=== PATIENT | female | born 1990 | race Caucasian/White ===

== ENCOUNTER 2016-08-10 11:11 | Emergency (ER) | payer OTHER ==
[2016-08-10 12:09] VITALS: BP 135/73
--- NOTE | 2016-08-10 12:31 | UC ---
Throat Pain/Nasal Tima HPI - HPI Summary HPI Summary: Forehead pain and pressure with mild hoarseness, L ear pain starting today. Sent here from work because of illness. - History of Current Complaint Chief Complaint: UCRespiratory Stated Complaint: LEFT EAR PAIN Time Seen by Provider: 08/10/16 11:59 Hx Obtained From: Patient Hx Last Menstrual Period: 07/31 ?: No Onset/Duration: Gradual Onset, Lasting Hours Severity: Mild Cough: None Associated Signs & Symptoms: Positive: Sinus Discomfort. Negative: Nasal Discharge, Fever - Allergies/Home Medications Allergies/Adverse Reactions: Allergies Allergy/AdvReac Type Severity Reaction Status Date / Time Chlorpheniramine Allergy Hives Verified 08/10/16 12:09 [From Rynatan] Phenylephrine [From Rynatan] Allergy Hives Verified 08/10/16 12:09 Home Medications: Home Medications Cholecalciferol [Vitamin D] 1,000 unit PO DAILY 08/10/16 [History Confirmed ] Otc Thyroid Support 1 tab PO BID 08/10/16 [History Confirmed 08/10/16] Selenium-Yeast [Selenium] 1 tab PO DAILY 08/10/16 [History Confirmed 08/10/16] PMH/Surg Hx/FS Hx/Imm Hx Endocrine History Of: Reports: Thyroid Disease - hypothyroid Denies: Diabetes Cardiovascular History Of: Denies: Cardiac Disorders, Hypertension Respiratory History Of: Denies: COPD, Asthma GI/ History Of: Denies: Ulcer - Surgical History Surgical History: Yes Surgery Procedure, Year, and Place: ear tubes as a child. T&A age 8 - Family History Known Family History: Positive: Cardiac Disease, Hypertension, Diabetes - Social History Occupation: Employed Full-time Lives: With Family Alcohol Use: Rare Substance Use Type: None Smoking Status (MU): Never Smoked Tobacco Have You Smoked in the Last Year: No - Immunization History Most Recent Influenza Vaccination: April 2016 Review of Systems Constitutional: Negative Skin: Negative Eyes: Negative ENT: Ear Ache, Other - hoarse Respiratory: Negative Cardiovascular: Negative Gastrointestinal: Negative Genitourinary: Negative Motor: Negative Neurovascular: Negative Musculoskeletal: Negative Neurological: Headache Psychological: Negative All Other Systems Reviewed And Are Negative: Yes Physical Exam Triage Information Reviewed: Yes Appearance: Well-Appearing, No Pain Distress, Well-Nourished Vital Signs: Initial Vital Signs Temp 98.6 F 08/10/16 12:03 Pulse 71 08/10/16 12:03 Resp 18 08/10/16 12:03 BP 135/73 08/10/16 12:03 Pulse Ox 100 08/10/16 12:03 Vital Signs Reviewed: Yes Eye Exam: Normal Eyes: Positive: Conjunctiva Clear ENT: Positive: Pharynx normal, TMs normal, Muffled/hoarse voice - hoarse. Negative: Nasal congestion, TM bulging, TM dull, TM red Dental Exam: Normal Neck exam: Normal Neck: Positive: Supple, Nontender, No Lymphadenopathy Respiratory Exam: Normal Respiratory: Positive: Chest non-tender, Lungs clear, Normal breath sounds, No respiratory distress, No accessory muscle use Cardiovascular Exam: Normal Cardiovascular: Positive: RRR, No Murmur Musculoskeletal Exam: Normal Neurological Exam: Normal Psychological Exam: Normal Skin Exam: Normal Throat Pain/Nasal Course/Dx - Differential Dx/Diagnosis Provider Diagnoses: laryngitis Discharge - Discharge Plan Condition: Stable Disposition: HOME Patient Education Materials: Laryngitis (ED) Forms: *Work Release Referrals: Rosa Patrick MD [Primary Care Provider] - If Needed Additional Instructions: Call or return if you develop increasing fever, shortness of breath, chest pain , bloody sputum, or otherwise worsen. If you have not improved at all after several days, contact your primary care physician or return here.
== END 2016-08-10 12:34 | disposition home or self-care (01) ==
LOC: UCCORT 11:11
DX: J04.0 Acute laryngitis (principal); E03.9 Hypothyroidism, unspecified; Z88.8 Allergy status to other drugs, medicaments and biological substances
CPT/HCPCS: 99211; G0463

== ENCOUNTER 2017-05-20 19:59 | Emergency (ER) | payer OTHER, MEDICAID ==
[2017-05-20 20:17] VITALS: BP 120/71
--- NOTE | 2017-05-20 20:55 | ED ---
Back Pain - HPI Summary HPI Summary: 26 yr old female with the complaint of low back pain. The patient has had low back pain for over two years and is seeing a chiropractor. She has had exacerbation for two weeks this time, same location, low left back that radiates into her left buttock area. No fever or chills. No numbness, no tingling no bowel or bladder incontinence. No other complaints. - History of Current Complaint Chief Complaint: UCBackPain Stated Complaint: BACK PAIN Time Seen by Provider: 05/20/17 20:43 Hx Last Menstrual Period: 05/17/17 - Allergies/Home Medications Allergies/Adverse Reactions: Allergies Allergy/AdvReac Type Severity Reaction Status Date / Time Chlorpheniramine Allergy Hives Verified 05/20/17 20:17 [From Rynatan] Phenylephrine [From Rynatan] Allergy Hives Verified 05/20/17 20:17 Home Medications: Home Medications Ibuprofen TAB* [Motrin TAB* 800 MG] 800 mg PO ONCE 05/20/17 [History Confirmed 05/20/17] Oral Contraceptive 1 tab PO DAILY 05/20/17 [History Confirmed 05/20/17] PMH/Surg Hx/FS Hx/Imm Hx Endocrine/Hematology History: Reports: Hx Thyroid Disease - hypothyroid Denies: Hx Diabetes Cardiovascular History: Denies: Hx Hypertension Respiratory History: Denies: Hx Asthma, Hx Chronic Obstructive Pulmonary Disease (COPD) GI History: Denies: Hx Ulcer - Surgical History Surgery Procedure, Year, and Place: ear tubes as a child. T&A age 8 Infectious Disease History: No Infectious Disease History: Denies: Hx Clostridium Difficile, Hx Hepatitis, Hx Human Immunodeficiency Virus (HIV), Hx of Known/Suspected MRSA, Hx Shingles, Hx Tuberculosis, Hx Known/ Suspected VRE, Hx Known/Suspected VRSA, History Other Infectious Disease, Traveled Outside the [place] in Last 30 Days - Family History Known Family History: Positive: Cardiac Disease, Hypertension, Diabetes - Social History Alcohol Use: Rare Substance Use Type: Reports: None Smoking Status (MU): Never Smoked Tobacco Have You Smoked in the Last Year: No Review of Systems Positive: Other - back pain All Other Systems Reviewed And Are Negative: Yes Physical Exam Triage Information Reviewed: Yes Vital Signs On Initial Exam: Initial Vitals Temp Pulse Resp BP Pulse Ox 98 F 100 18 120/71 100 05/20/17 20:11 05/20/17 20:11 05/20/17 20:11 05/20/17 20:11 05/20/17 20:11 Vital Signs Reviewed: Yes Appearance: Positive: Well-Appearing, No Pain Distress Skin: Positive: Warm Head/Face: Positive: Normal Head/Face Inspection Eyes: Positive: EOMI ENT: Positive: Normal ENT inspection Neck: Negative: Tenderness @ Respiratory/Lung Sounds: Positive: Clear to Auscultation, Breath Sounds Present Abdomen Description: Positive: Nontender. Negative: CVA Tenderness (R), CVA Tenderness (L) Musculoskeletal: Positive: Strength/ROM Intact, Other - positive left straightleg sign. No focal TLS tenderness. Neurological: Positive: Sensory/Motor Intact, Alert, Oriented to Person Place, Time, CN Intact II-III, Normal Gait, Speech Normal Psychiatric: Positive: Normal - [place] Coma Scale Best Eye Response: 4 - Spontaneous Best Motor Response: 6 - Obeys Commands Best Verbal Response: 5 - Oriented Diagnostics - Vital Signs Vital Signs Temp Pulse Resp BP Pulse Ox 05/20/17 20:11 98 F 100 18 120/71 100 - Laboratory Lab Statement: Any lab studies that have been ordered have been reviewed, and results considered in the medical decision making process. Back Pain Course/Dx - Course Course Of Treatment: 26 yr old with low back pain and pain that radiates into her left buttock area. She has been told she needs to see specialist in follow up and that she should go to the ER for continued or worsening symptoms as she may require MRI imaging of her low back. - Diagnoses Provider Diagnoses: Low back pain Discharge - Discharge Plan Condition: Good Disposition: HOME Prescriptions: Cyclobenzaprine TAB* [Flexeril 10 MG TAB*] 10 mg PO TID PRN #20 tab PRN Reason: Pain Ibuprofen TAB* [Motrin TAB* 600 MG] 600 mg PO Q8H PRN #20 tab PRN Reason: Pain Patient Education Materials: Back Pain (ED) Referrals: Shay Antony [Primary Care Provider] - Estefania Lopez MD [Medical Doctor] - Markus Martinez MD [Medical Doctor] -
== END 2017-05-20 20:55 | disposition home or self-care (01) ==
LOC: UCCORT 19:59
DX: M54.5 Low back pain (principal); Z88.8 Allergy status to other drugs, medicaments and biological substances
CPT/HCPCS: 99212; G0463

== ENCOUNTER 2018-07-25 14:39 | Emergency (ER) | payer OTHER ==
--- OUTSIDE RECORDS SUMMARY | 2018-07-25 14:52 | XMS REPORT | Continuity of Care Document ---
:1990 External Reference #:[id number] Author Name Kylah Whatley M.D. Address [address] [facility] [address] [place] [address] Care Team Providers Name Role Phone Kylah Whatley M.D. Care Team Information Environmental Engineer Scientist Unavailable Payers Type Date Identification Numbers Payment Provider Subscriber Effective: Policy Number: [id number] [facility] Isabelle King 2017 PayID: [id number] [address] [place] [address] Policy Number: [id number] [employer] Isabelle King PayID: [id number] [address] [place] [address] Advance Directives Description No Information Available Problems Description No Information Family History Date Family Member(s) Problem(s) Comments Father Colon Cancer Father Crohn's Disease Father Alcoholism Mother Asthma Mother Arthritis First Son No Current Problems Paternal Grandfather due to Heart Attack () - 70'S Paternal Grandfather Cancer Paternal Grandmother due to Natural Causes () Maternal Grandfather due to Suicide () Maternal Grandfather Lung Cancer Maternal Grandfather Skin Cancer Maternal Grandfather Depression Maternal Grandfather Chronic Obstructive Pulmonary Disease (COPD) Maternal Grandmother Cervical Cancer IN REMISSION Maternal Grandmother Insulin Dependent Diabetes Social History Type Date Description Comments Sex Unknown Marital Status Legal Status: Never Pets several dogs Occupation Daycare Work Status Full-Time Employment ETOH Use Occasionally consumes wine Tobacco Use Start: Unknown Patient has never smoked Smoking Status Reviewed: 06/17/17 Patient has never smoked Guns in Home Yes, Locked Up Smoke Alarms Yes Smoke Alarms Carbon Monoxide Detector: Yes Currently Active Patient is currently sexually active Allergies, Adverse Reactions, Alerts Date Description Reaction Status Severity Comments 01/07/2017 Rynatan Active Medications Medication Date Status Form Strength Qnty SIG Indications Ordering Provider Levoxyl Active Tablets 75mcg 90tabs 1 by E03.9 Jasbir Whatley mouth Ahmad M., every M.D. day Ortho Micronor Active Tablets 0.35mg 84tabs 1 tab by Jasbir Whatley mouth Ahmad M., every M.D. day Amoxicillin Hx Tablets 500mg 30tabs 1 tab by K02.9 Chacorta 018 - mouth Ahmad M., three M.D. 018 times a day Ondansetron Hx Tablets 4mg 30tabs 1 tab by R11.0 Grant Whatley - Dispers mouth Ahmad M., every 4 M.D. 018 hours as needed Phentermine Hx Capsules 30mg 30caps 1 by E66.01 DEBBIE Whatley 017 - mouth Ahmad M., every M.D. 018 day Levoxyl Hx Tablets 100mcg 30tabs one by E03.9 Chacorta, 017 - mouth Ahmad M., every M.D. 017 day Zithromax Hx Tablets 250mg 6tabs tab 2 J01.80 Chacorta 017 - today Ahmad M., and then M.D. 017 tab one by mouth every day x 4 days Benzonatate Hx Capsules 200mg 30caps tab one Chacorta 017 - by mouth Ahmad M., three M.D. 017 times a day Immunizations Description No Information Available Vital Signs Date Vital Result Comment 07/13/2018 2:18pm BP Systolic 110 mmHg BP Diastolic 60 mmHg Height 61.25 inches 5'1.25" Weight 191.00 lb BMI (Body Mass Index) 35.8 kg/m2 Heart Rate 62 /min Respiratory Rate 16 /min 07/03/2018 1:41pm BP Systolic 126 mmHg BP Diastolic 80 mmHg Height 61.25 inches 5'1.25" Weight 195.00 lb BMI (Body Mass Index) 36.5 kg/m2 12/24/2017 3:37pm BP Systolic 98 mmHg BP Diastolic 56 mmHg Height 61.25 inches 5'1.25" Weight 190.00 lb BMI (Body Mass Index) 35.6 kg/m2 Heart Rate 118 /min Respiratory Rate 16 /min 11/21/2017 1:47pm BP Systolic 120 mmHg BP Diastolic 80 mmHg Height 61.25 inches 5'1.25" Weight 193.00 lb BMI (Body Mass Index) 36.2 kg/m2 Heart Rate 78 /min Respiratory Rate 16 /min 10/13/2017 4:42pm BP Systolic 126 mmHg BP Diastolic 62 mmHg Height 61.25 inches 5'1.25" Weight 194.00 lb BMI (Body Mass Index) 36.4 kg/m2 Heart Rate 78 /min Respiratory Rate 16 /min 09/22/2017 4:45pm BP Systolic 112 mmHg BP Diastolic 60 mmHg Height 61.25 inches 5'1.25" Weight 191.00 lb BMI (Body Mass Index) 35.8 kg/m2 Heart Rate 70 /min Respiratory Rate 16 /min 06/17/2017 4:36pm BP Systolic 104 mmHg BP Diastolic 60 mmHg Height 61.25 inches 5'1.25" Weight 179.00 lb BMI (Body Mass Index) 33.5 kg/m2 Heart Rate 100 /min Respiratory Rate 16 /min 05/27/2017 4:44pm BP Systolic 114 mmHg BP Diastolic 60 mmHg Height 61.25 inches 5'1.25" Weight 179.00 lb BMI (Body Mass Index) 33.5 kg/m2 Heart Rate 105 /min Respiratory Rate 16 /min 05/06/2017 4:30pm BP Systolic 140 mmHg BP Diastolic 64 mmHg Height 61.25 inches 5'1.25" Weight 179.00 lb BMI (Body Mass Index) 33.5 kg/m2 Heart Rate 90 /min Respiratory Rate 16 /min 03/27/2017 5:15pm BP Systolic 118 mmHg BP Diastolic 74 mmHg Height 61.25 inches 5'1.25" Weight 181.00 lb BMI (Body Mass Index) 33.9 kg/m2 Heart Rate 87 /min Respiratory Rate 16 /min 02/06/2017 4:30pm BP Systolic 100 mmHg BP Diastolic 62 mmHg Height 61.25 inches 5'1.25" Weight 187.00 lb BMI (Body Mass Index) 35.0 kg/m2 Heart Rate 71 /min Respiratory Rate 16 /min 01/21/2017 4:00pm BP Systolic 112 mmHg BP Diastolic 72 mmHg Height 61.25 inches 5'1.25" Weight 183.00 lb BMI (Body Mass Index) 34.3 kg/m2 Heart Rate 81 /min Respiratory Rate 16 /min 01/07/2017 4:22pm BP Systolic 128 mmHg BP Diastolic 72 mmHg Height 61.25 inches 5'1.25" Weight 185.00 lb BMI (Body Mass Index) 34.7 kg/m2 Heart Rate 92 /min Body Temperature 98.7 F Respiratory Rate 16 /min Results Test Date Facility Test Result H/L Range Note Hemoglobin/Hematocrit 06/27/2018 [facility] Hemoglobin 10.2 gm/dL Low 11.6- 15.8 1 Hematocrit 30.2 % Low 36.0-46.1 Laboratory test 06/27/2018 [facility] Screen NEGATIVE N 2 finding CBC 06/26/2018 [facility] White Blood Count 12.6 K/uL High 3.1-10.7 Red Blood Count 3.91 M/uL N 3.90-5.40 Hemoglobin 11.2 gm/dL Low 11.6-15.8 Hematocrit 34.0 % Low 36.0-46.1 Mean Cell Volume 87.0 fl N 80.9-99.0 Mean Corpuscular HGB 28.6 pg N 25.9-32.7 Mean Corpuscular HGB Conc 32.9 g/dL N 30.8-34.3 Platelet Count 259 K/uL N 155-360 Red Cell Distri Width %CV 13.5 % N 11.7-14.4 Mean Platelet Volume 9.2 fL N 8.9-12.4 Type And Screen 06/26/2018 [facility] Patient Blood Type O NEG N Antibody Screen Negative N Negative Laboratory test 06/26/2018 [facility] Treponema Antibody Negative Negative 3 finding [place] Urinalysis With 06/04/2018 [facility] Urine Color YELLOW Yellow 4 Microscopic Urine Clarity CLEAR Clear Urine Glucose - Dipstick NEGATIVE mg/dL Negative Urine Bilirubin - Dipstick NEGATIVE Negative Urine Ketone 40 mg/dL High Negative Urine Specific [place] 1.020 N 1.010-1.030 Urine Blood MODERATE Abnormal Negative Urine PH 6.0 Low 6.5-7.5 Urine Protein - Dipstick NEGATIVE mg/dL Negative Urine Urobilinogen - Dipstick 0.2 E.U./dL N 0.2-1.0 Urine Nitrite - Dipstick NEGATIVE Negative Urine Leuk Esterase NEGATIVE Negative Urine RBC 5-10 rbc/hpf High 0-2 Urine WBC 0-2 wbc/hpf 0-7 Urine Epithelial Cells FEW /lpf None Seen Urine Bacteria VERY FEW None Seen Urine Amorph Sediment VERY FEW Negative Source: URINE, CLEAN CAT <SEE NOTE> 5 Laboratory test finding 06/04/2018 [facility] . N 6, 7 Type And Screen 06/04/2018 [facility] Patient Blood Type O NEG N Antibody Screen POSITIVE Abnormal Negative CBC 06/04/2018 [facility] White Blood Count 14.0 K/uL High 3.1-10.7 Red Blood Count 3.64 M/uL Low 3.90-5.40 Hemoglobin 10.8 gm/dL Low 11.6-15.8 Hematocrit 32.1 % Low 36.0-46.1 Mean Cell Volume 88.2 fl N 80.9-99.0 Mean Corpuscular HGB 29.7 pg N 25.9-32.7 Mean Corpuscular HGB Conc 33.6 g/dL N 30.8-34.3 Platelet Count 250 K/uL N 155-360 Red Cell Distri Width %CV 13.4 % N 11.7-14.4 Mean Platelet Volume 9.2 fL N 8.9-12.4 Laboratory 12/24/2017 [facility] TSH,Ultrasensitive @ 0.858 (0.360- 4.170) test finding 113 [employer] mIU/L (607)- - Free Thyroxine @ 1.06 ng/dL (0.76-1.46) Ua RFX Micro & Culture II 11/13/2017 [facility] Urine Color YELLOW Yellow 8 Urine Clarity CLEAR Clear Urine Glucose - Dipstick NEGATIVE mg/dL Negative Urine Bilirubin - Dipstick SMALL Abnormal Negative Urine Ketone 40 mg/dL High Negative Urine Specific [place] >=1.030 N 1.010-1.030 Urine Blood TRACE Negative Urine PH 6.0 Low 6.5-7.5 Urine Protein - Dipstick NEGATIVE mg/dL Negative Urine Urobilinogen - Dipstick 0.2 E.U./dL N 0.2-1.0 Urine Nitrite - Dipstick NEGATIVE Negative Urine Leuk Esterase NEGATIVE Negative Source: URINE, CLEAN CAT <SEE NOTE> 9 CBC 11/13/2017 [facility] White Blood Count 13.5 K/uL High 3.1-10.7 Red Blood Count 4.45 M/uL N 3.90-5.40 Hemoglobin 13.6 gm/dL N 11.6-15.8 Hematocrit 38.9 % N 36.0-46.1 Mean Cell Volume 87.4 fl N 80.9-99.0 Mean Corpuscular HGB 30.6 pg N 25.9-32.7 Mean Corpuscular HGB Conc 35.0 g/dL High 30.8-34.3 Platelet Count 246 K/uL N 155-360 Red Cell Distri Width %CV 12.9 % N 11.7-14.4 Mean Platelet Volume 9.2 fL N 8.9-12.4 Basic Metabolic Panel 11/13/2017 [facility] Glucose 84 mg/dL N 74-106 BUN 10 mg/dL N 7-18 Creatinine 0.7 mg/dL N 0.6-1.3 Glom Filtration Rate, Estimate >60 mL/min >60 If >60 mL/min >60 10 BUN/Creat 14.2 ratio Sodium 137 mmol/L N 136-145 Potassium 3.5 mmol/L N 3.5-5.1 Chloride 102 mmol/L N 98-107 Carbon Dioxide 25 mmol/L N 21-32 Anion Gap 10 mEq/L N 8-16 Calcium 8.8 mg/dL N 8.5-10.1 Laboratory test finding 11/13/2017 [facility] Lipase 97 U/L N 56-289 HCG, Quant 99053.0 mIU/mL 11 Thyroid Antibody 09/22/2017 [facility] Thyroglobulin AB @ 54 IU/mL High (<40) And Peroxidase [address] [place] [employer] (126)- - Thyr Peroxidase AB @ <10 IU/mL (<35) Laboratory 09/22/2017 [facility] TSH,Ultrasensitive @ 1.970 (0.360- 4.170) test finding 113 [employer] [facility] mIU/L (541)- - Free Thyroxine @ 0.89 ng/dL (0.76-1.46) CMP 09/22/2017 [facility] Sodium 143 mmol/L (136-145) 113 [employer] (125)- - Potassium 3.7 mmol/L (3.6-5.2) Chloride 108 mmol/L (100-108) Co2 26 mmol/L (22-31) Anion Gap 9 mmol/L (7-16) Urea Nitrogen 12 mg/dL (7-24) Creatinine 0.85 mg/dL (0.60-1.00) BUN/Creat Ratio 14.1 RATIO (10.0-20.0) Glucose 81 mg/dL (70-99) Calcium 8.9 mg/dL (8.4-10.2) Total Protein 7.5 g/dL (6.4-8.2) Albumin 4.1 g/dL (3.5-4.6) Globulin 3.4 g/dL (2.7-4.3) Alb/Glob Ratio 1.2 RATIO Alkaline Phosphatase 69 U/L (45-117) Bilirubin,Total 0.2 mg/dL (0.0-1.0) Ast (Sgot) 9 U/L Low (11-39) Alt (SGPT) 16 U/L (12-78) GFR >60 ml/min/1.73m2 (>59) GFR ( Amer) >60 ml/min/1.73m2 (>59) GFR Interpretation <SEE NOTE> 12 CBC With Diff 09/22/2017 [facility] WBC 10.9 10*3/uL (4.1-11.0) 113 [employer] (607)- - RBC 4.56 10*6/uL (4.00-5.40) HGB 13.5 g/dL (12.0-16.0) HCT 40.0 % (36.0-47.0) MCV 87.6 fL (80.0-95.0) MCH 29.6 pg (27.0-32.0) MCHC 33.8 g/dL (32.0-36.0) RDW 12.8 % (10.5-14.5) PLT 294 10*3/uL (150-450) MPV 8.0 fL (7.1-10.7) Neut % 53.4 % (35.0-75.0) Lymph % 37.6 % (16.0-52.0) [place] % 6.7 % (0.0-8.0) Eos % 1.7 % (0.0-5.0) Baso % 0.6 % (0.0-4.0) Neut # 5.8 10*3/uL (1.8-7.7) Lymph # 4.1 10*3/uL (1.2-4.8) [place] # 0.7 10*3/uL (0.0-0.8) Eos # 0.2 10*3/uL (0.0-0.5) Baso # 0.1 10*3/uL (0.0-0.2) Laboratory 05/06/2017 [facility] TSH,Ultrasensitive @ 1.010 (0.360- 4.170) test finding 113 [employer] mIU/L (607)- - CBC With Diff 05/06/2017 [facility] WBC 14.2 High (4.1-11.0) 113 [employer] 10*3/uL (607)- - RBC 4.59 10*6/uL (4.00-5.40) HGB 13.6 g/dL (12.0-16.0) HCT 39.9 % (36.0-47.0) MCV 87.0 fL (80.0-95.0) MCH 29.6 pg (27.0-32.0) MCHC 34.0 g/dL (32.0-36.0) RDW 13.0 % (10.5-14.5) PLT 304 10*3/uL (150-450) MPV 8.2 fL (7.1-10.7) Neut % 62.2 % (35.0-75.0) Lymph % 28.7 % (16.0-52.0) [place] % 6.0 % (0.0-8.0) Eos % 2.7 % (0.0-5.0) Baso % 0.4 % (0.0-4.0) Neut # 8.8 10*3/uL High (1.8-7.7) Lymph # 4.1 10*3/uL (1.2-4.8) [place] # 0.9 10*3/uL High (0.0-0.8) Eos # 0.4 10*3/uL (0.0-0.5) Baso # 0.1 10*3/uL (0.0-0.2) CMP 05/06/2017 [facility] Sodium 138 mmol/L (136-145) 113 [employer] (607)- - Potassium 3.6 mmol/L (3.6-5.2) Chloride 104 mmol/L (100-108) Co2 29 mmol/L (22-31) Anion Gap 5 mmol/L Low (7-16) Urea Nitrogen 6 mg/dL Low (7-24) Creatinine 0.68 mg/dL (0.60-1.00) BUN/Creat Ratio 8.8 RATIO Low (10.0-20.0) Glucose 80 mg/dL (70-99) Calcium 8.8 mg/dL (8.4-10.2) Total Protein 7.8 g/dL (6.4-8.2) Albumin 4.1 g/dL (3.5-4.6) Globulin 3.7 g/dL (2.7-4.3) Alb/Glob Ratio 1.1 RATIO Alkaline Phosphatase 83 U/L (45-117) Bilirubin,Total 0.2 mg/dL (0.0-1.0) Ast (Sgot) 12 U/L (11-39) Alt (SGPT) 21 U/L (12-78) GFR >60 ml/min/1.73m2 (>59) GFR ( Amer) >60 ml/min/1.73m2 (>59) GFR Interpretation <SEE NOTE> 13 Laboratory test 01/21/2017 [facility] 14 finding 113 KATIE CHILDS <SEE NOTE> (607)- - CMP 01/07/2017 [facility] Sodium 141 mmol/L (136-145 113 [employer] ) (607)- - Potassium 4.0 mmol/L (3.6-5.2) Chloride 107 mmol/L (100-108) Co2 27 mmol/L (22-31) Anion Gap 7 mmol/L (7-16) Urea Nitrogen 12 mg/dL (7-24) Creatinine 0.76 mg/dL (0.60-1.00) BUN/Creat Ratio 15.8 RATIO (10.0-20.0) Glucose 78 mg/dL (70-99) Calcium 9.0 mg/dL (8.4-10.2) Total Protein 7.5 g/dL (6.4-8.2) Albumin 3.9 g/dL (3.5-4.6) Globulin 3.6 g/dL (2.7-4.3) Alb/Glob Ratio 1.1 RATIO Alkaline Phosphatase 81 U/L (45-117) Bilirubin,Total 0.3 mg/dL (0.0-1.0) Ast (Sgot) 18 U/L (11-39) Alt (SGPT) 34 U/L (12-78) GFR >60 ml/min/1.73m2 (>59) GFR ( Amer) >60 ml/min/1.73m2 (>59) GFR Interpretation <SEE NOTE> 15 Laboratory 01/07/2017 [facility] TSH,Ultrasensitive @ 0.006 Low (0.360- 4.170) test finding 113 [employer] mIU/L (607)- - Lipid 01/07/2017 [facility] Cholesterol @ 178 (0-200) [address] [employer] mg/dL (607)- - Triglyceride @ 205 mg/dL High (30-200) HDL Cholesterol @ 40 mg/dL Low (>40) 16 Chol/HDL Ratio 4.5 RATIO 17 LDL Chol (Calc) 97 mg/dL (<130) 18 1 POST DATE IOL 2 Blood Type O NEG 3 Performed at: - [facility] [id number] [employer] Operator: Arun Slaughter MD, Phone: [phone] 4 38 WKS , HIT A DEER WITH CAR 5 URINE, CLEAN CATCH 6 OBSERVED FOR MOVEMENT ; DOC HAS BEEN CALLED 7 NO CELLS DETECTED Testing Performed by: [facility], [address] [place] [address] 8 8 WEEKS , BEEN THROWING UP FOR 24 HOURS 9 URINE, CLEAN CATCH 10 Note: Persistent reduction for 3 months or more in an eGFR <60 mL/min/1.73 m2 defines CKD. Patients with eGFR values >/=60 mL/min/1.73 m2 may also have CKD if evidence of persistent proteinuria is present. The original MDRD equation for estimated GFR is not valid for patients less than 18 years of age. Additional information may be found at www.kdoqi.org. 11 Result confirmed by repeat analysis. Approximate Gestational Age and Total BHCG Range: 0.2 - 1 Week........................5-50 mIU/mL 1 - 2 Weeks.....................50-500 mIU/mL 2 - 3 Weeks..................100-5,000 mIU/mL 3 - 4 Weeks.................500-10,000 mIU/mL 4 - 5 Weeks...............1,000-50,000 mIU/mL 5 - 6 Weeks.............10,000-100,000 mIU/mL 6 - 8 Weeks.............15,000-200,000 mIU/mL 2 - 3 Months............10,000-100,000 mIU/mL 12 NORMAL KIDNEY FUNCTION OR MILD DISEASE - GFR >OR=60 CHRONIC KIDNEY DISEASE - GFR 15 - 59 RENAL FAILURE - GFR <15 Est. GFR calculation based on the MDRD study equation, which assumes a steady state for creatinine. Est. GFR should not be used for medication dosing. 13 NORMAL KIDNEY FUNCTION OR MILD DISEASE - GFR >OR=60 CHRONIC KIDNEY DISEASE - GFR 15 - 59 RENAL FAILURE - GFR <15 Est. GFR calculation based on the MDRD study equation, which assumes a steady state for creatinine. Est. GFR should not be used for medication dosing. 14 [facility] [address] [place] [address] GYNECOLOGIC CYTOLOGY REPORT Patient Name: ISABELLE KING :1990 (Age: 26) Physician(s): RODERICK ARREAGA Accession Number: [id number] Source of Specimen(s): A: Thin Prep Cervical Pap Smear - One Vial Clinical Diagnosis and History: Date of Last Menstrual Period: 01/13/17 Other Clinical Conditions: Last Pap Smear: 2015 wnl REFLEX TO HPV ASSAY IF RESULTS OF THIS PAP ARE ASCUS Specimen Adequacy SATISFACTORY FOR EVALUATION SCANT/NO ENDOCERVICAL COMPONENT General Categorization NEGATIVE FOR INTRAEPITHELIAL LESION OR MALIGNANCY Interpretation NEGATIVE FOR INTRAEPITHELIAL LESION OR MALIGNANCY Reported: 01/23/2017 09:10 Electronically Signed Out By Renee RAMIREZ([facility]) dol 15 NORMAL KIDNEY FUNCTION OR MILD DISEASE - GFR >OR=60 CHRONIC KIDNEY DISEASE - GFR 15 - 59 RENAL FAILURE - GFR <15 Est. GFR calculation based on the MDRD study equation, which assumes a steady state for creatinine. Est. GFR should not be used for medication dosing. 16 PER NCEP ATP III GUIDELINES: RESULTS LOWER THAN 40 MG/DL ARE SUGGESTIVE OF INCREASED RISK FOR CORONARY ARTERY DISEASE. RESULTS > OR=TO 60 MG/DL ARE CONSIDERED A NEGATIVE RISK FACTOR. 17 INTERPRETATION OF CHOL-HDL RATIO CHD RISK FEMALE MALE VERY HIGH >8.3 >14.3 HIGH 5.6- 8.3 6.7- 14.3 AVERAGE 3.7- 5.6 4.0- 6.7 BELOW AVERAGE 2.5- 3.7 2.7- 4.0 PROTECTED <2.5 <2.7 18 PER NCEP ATP III GUIDELINES: OPTIMAL < 100 NEAR OPTIMAL 100 - 129 BORDERLINE HIGH 130 - 159 HIGH 160 - 189 VERY HIGH > 189 Procedures Date Code Description Status 01/07/2017 33622 Spirometry Completed 01/07/2017 19314 Tympanometry Completed Encounters Type Date Location Provider Dx Diagnosis Office Visit 07/03/2018 Kylah Palma, E03.9 Hypothyroidism, 2:00p M.D. unspecified E66.01 Morbid (severe) obesity due to excess calories L20.9 Atopic dermatitis, unspecified J30.9 Allergic rhinitis, unspecified M54.5 Low back pain E06.3 Autoimmune thyroiditis Z00.01 Encounter for general adult medical exam w abnormal findings K02.9 Dental caries, unspecified Office Visit 12/24/2017 3:30p Kylah Palma, E03.9 Hypothyroidism , M.D. unspecified E66.01 Morbid (severe) obesity due to excess calories L20.9 Atopic dermatitis, unspecified J30.9 Allergic rhinitis, unspecified M54.5 Low back pain Z71.3 Dietary counseling and surveillance E06.3 Autoimmune thyroiditis Z33.1 state, incidental R11.0 Nausea Office Visit 11/21/2017 1:45p Kylah Palma E03.9 Hypothyroidism , M.D. unspecified E66.01 Morbid (severe) obesity due to excess calories L20.9 Atopic dermatitis, unspecified J30.9 Allergic rhinitis, unspecified M54.5 Low back pain Z71.3 Dietary counseling and surveillance E06.3 Autoimmune thyroiditis Z33.1 state, incidental A09 Infectious gastroenteritis and colitis, unspecified R11.0 Nausea Office Visit 10/13/2017 5:00p Kylah Palma E03.9 Hypothyroidism , M.D. unspecified E66.01 Morbid (severe) obesity due to excess calories L20.9 Atopic dermatitis, unspecified J30.9 Allergic rhinitis, unspecified M54.5 Low back pain Z71.3 Dietary counseling and surveillance E06.3 Autoimmune thyroiditis Z33.1 state, incidental Office Visit 09/22/2017 5:00p Kylah Palma E03.9 Hypothyroidism , M.D. unspecified E66.01 Morbid (severe) obesity due to excess calories L20.9 Atopic dermatitis, unspecified J30.9 Allergic rhinitis, unspecified M54.5 Low back pain Office Visit 06/17/2017 5:00Roderick Raymond E03.9 Hypothyroidism , unspecified E66.01 Morbid (severe) obesity due to excess calories M54.42 Lumbago with sciatica, left side Z79.899 Other smooth stucco resurfacer (current) drug therapy Office Visit 05/27/2017 4:45p Roderick Arora E03.9 Hypothyroidism , unspecified E66.01 Morbid (severe) obesity due to excess calories M54.42 Lumbago with sciatica, left side Z79.899 Other fpc (current) drug therapy Office Visit 05/06/2017 4:30p Roderick Arora E03.9 Hypothyroidism , unspecified E66.01 Morbid (severe) obesity due to excess calories L50.0 Allergic urticaria Office Visit 03/27/2017 4:30p Roderick Arora Z71.3 Dietary counseling and surveillance E66.01 Morbid (severe) obesity due to excess calories E03.9 Hypothyroidism, unspecified Office Visit 02/06/2017 4:30p Roderick Arora E03.9 Hypothyroidism , unspecified E66.01 Morbid (severe) obesity due to excess calories Office Visit 01/07/2017 3:45p Roderick Arora E03.9 Hypothyroidism , unspecified R05 Cough R51 Headache J01.80 Other acute sinusitis Plan of Treatment 07/13/2018 - Kylah Whatley M.D.E03.9 Hypothyroidism, unspecifiedComments:RX REVIEWED AND UPDATEDF/U TSH/ FT4E66.01 Morbid (severe) obesity due to excess caloriesComments:WT LOSS COUNCELLINGEXERCISEDIET [id number] Atopic dermatitis, unspecifiedComments:SKIN CARE INSTRUCTIONS LOTION OR BABY OIL 2-3 APPLICATION PER DAYUSE MOISTURIZING SOAPAVOID PROLONGED WATER EXPOSUREAVOID USING HOT WATER IN FEGBOHX69.9 Allergic rhinitis, unspecifiedComments:INCREASE PO FLUID USE ANTIHISTAMINE PRN SECOND HAND SMOKING NMDXOTWHPC28.5 Low back painComments:WC CASEE06.3 Autoimmune thyroiditisComments:F/U WITH WFLDHXFETERSH06.9 Dental caries, unspecifiedComments:F/U WITH HSAIDHO86.0 Urinary tract infection, site not specifiedComments:INCREASE PO FLUIDREVIEWED PREVENTIVE ASHXCNBGI95.0 DysuriaComments:INCREASE PO FLUIDTYLENOL OR MOTRIN PRN
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
== END 2018-07-25 15:20 | disposition left against medical advice (07) ==
LOC: UCCORT 14:39
DX: R68.89 Other general symptoms and signs (principal); Z53.21 Procedure and treatment not carried out due to patient leaving prior to being seen by health care provider